=== PATIENT | male | born 1935 | race African-American/Black ===

== ENCOUNTER 2017-12-28 12:06 | Inpatient (IN) | payer MEDICARE ==
--- NOTE | 2017-12-28 17:01 | PDOC.FPRHP ---
- History of Present Illness Chief Complaint: Right knee pain History of Present Illness: Per ED doc who got report from [place] [facility], pt was taken to [facility] by his care takers because he had not gotten out of bed for the past 2-3 days due to leg pain. In the ER he was noted to have a R knee effusion which was subsequently aspirated. Due to the concern for a possible septic joint, he was transferred to this facility. Once at this facility it was noted that the patient did not have fever and his WBC count was not elevated. Concern for septic joint was low in this ER, however it was determined that the patient would likely be appropriate for rehab dt his lack of mobility. Unfortunately, there are no rehab beds available and the patient does need inpatient observation dt his baseline dementia in the setting of what is a possibly infected joint. It was also noted in the ED that the patient had a UA concerning for UTI. He was given one dose of IV Rocephin. This history was hampered by the fact that the patient has a baseline confusion. He typically does not know where he is and has very poor short term memory. ED Course: Pt was treated for UTI with 1g Rocephin IV. - Allergies/Adverse Reactions Allergies Allergy/AdvReac Type Severity Reaction Status Date / Time No Known Allergies Allergy Verified 06/06/17 23:20 - Home Medications Medication Instructions Recorded Confirmed Type Acetaminophen [Tylenol Regular 650 mg PO Q4H PRN 12/28/17 12/28/17 History Strength] Amlodipine [Norvasc] 12/28/17 History Atorvastatin Calcium [Lipitor] 12/28/17 History Comments: This med rec was done based on pharmacy records. The patient could not provide accurate records and there are no caregivers available to discuss patient - History PMHx: HTN Dementia PSHx: FHx: Social: Hx of etoh abuse Hx of tobacco use - Review of Systems ROS unobtainable: other (Pt will interact and answer questions, however is unreliable dt the patient's baseline dementia) General: denies: fever/chills, weight/appetite/sleep changes Eyes: denies: eye pain, vision changes ENT: denies: nasal congestion, rhinorrhea Respiratory: denies: cough, congestion Cardiovascular: denies: chest pain, palpitation Gastrointestinal: denies: nausea, vomiting, diarrhea Genitourinary: denies: incontinence, dysuria Skin: denies: rashes, lesions Musculoskeletal: reports: pain, tenderness, stiffness, swelling (Complains of left and right LE pain), arthritis/arthralgias Neurological: denies: numbness, syncope Psychological: denies: anxiety, depression - Vital signs BP: 122/88 HR: 92 RR: 14 Tmax: 98.6 Pox: 100% on RA Wt: 39 kg - Physical Exam Constitutional: NAD, awake, alert and oriented (Only oriented to place) HEENT: normocephalic and atraumatic, PERRLA, EOMI Neck: supple, FROM Chest: no-tender to palpation, no lesions Heart: RRR, normal S1/S2, no murmurs/rubs/gallops Lungs: CTAB, no respiratory distress, good air movement, no wheezing Abdomen: soft, non-tender, bowel sounds present -Musculoskeletal: Right knee is TTP and has obvious effusion. s/p aspiration in [place]. Will not go through ROM dt pain Right ankle TTP. Pain with ROM Neurological: no focal deficit, CN II-XII intact Skin: no rash/lesions, good turgor Heme/Lymphatic: no unusual bruising or bleeding, no purpura -Psychiatric: Pt is aware of self, but is otherwise confused. He will interact appropriately, however has poor short term memory and cannot remember any of the days events. FMR H&P: Results - Labs Lab results: Laboratory Tests 12/28/17 12/28/17 12/28/17 09:43 09:43 09:49 WBC 5.6 Hgb 15.4 MCV 95.0 H Plt Count 269 Neutrophils % (Manual) 69 Sodium 142 Potassium 4.2 Chloride 102 Carbon Dioxide 26 Anion Gap 18 BUN 17 Creatinine 1.16 Estimated GFR (MDRD) 73 Glucose 113 H Uric Acid 7.3 H Calcium 10.5 H Total Bilirubin 1.0 AST 38 H ALT 23 Alkaline Phosphatase 56 Serum Total Protein 8.1 Albumin 3.6 Globulin 4.5 H Albumin/Globulin Ratio 0.8 L Urine Color Yellow Urine Clarity Clear Urine pH 5.5 Ur Specific [place] 1.025 Urine Protein 30 H Urine Glucose (UA) Negative Urine Ketones Negative Urine Blood Moderate H Urine Nitrite Positive H Urine Bilirubin Small H Urine Urobilinogen 4.0 H Ur Leukocyte Esterase Trace H Urine RBC 0-3 Urine WBC 4-6 H Ur Squamous Epith Cells 0-3 Urine Bacteria Rare-Few - Radiology Interpretation Other Status: report reviewed by me (Xray R Leg. Degenerative chages with effusion. No fx) FMR H&P: A/P - Problem List (1) Effusion, right knee Current Visit: Yes Status: Acute Priority: High Code(s): M25.461 - EFFUSION, RIGHT KNEE (2) Dementia Current Visit: Yes Status: Acute Priority: Medium Code(s): F03.90 - UNSPECIFIED DEMENTIA WITHOUT BEHAVIORAL DISTURBANCE Qualifiers: Dementia type: unspecified type (3) Hypertension Current Visit: Yes Status: Chronic Priority: Low Code(s): I10 - ESSENTIAL (PRIMARY) HYPERTENSION Qualifiers: Hypertension type: unspecified Qualified Code(s): I10 - Essential (primary ) hypertension (4) UTI (urinary tract infection) Current Visit: Yes Status: Acute Priority: Medium - Plan Right knee effusion - septic joint vs gout vs inflammatory arthritis vs osteoarthritis - aspirate studies pending - most likely etiology is inflammatory arthritis given that the PE found tenderness in multiple joints - treat pain with toradol/tylenol - will put in rehab consult for am Dementia - work to find next of kin/POA. At this point all treatment is based on limited known history and lab values UTI - given rocephin in the ED - Cx pending - Will continue abx Hyperuricemia - Mild elevation. patient may have undiagnosed gout - Studies for stone in joint aspirate are pending - toradol for pain as above Hypercalcemia - mild elevation. patient is asymptomatic - will give gentle IVF - recheck in am HTN - Per hx. Currently controlled. DVT prophylaxis - lovenox Hx of etoh abuse - ASE protocol without meds Disposition/LOS: This appears unlikely to be septic. Will obs over night and control pain. Will likely dc when placement is ready in am FMR H&P: Upper Level - Pertinent history 82 yo male with hx of etoh abuse who presents because he had not been able to walk for 2-3 days and had large knee effusion in R knee. Per his caregiver, he formally had been able to toilet on his own. Had major lapse's in memory. he can feed himself. he was living alone until about 1 month ago. He denies a hx of gout. actually the only symptom that the patient endorses is stomach cramping. - Pertinent findings Vitals WNL Gen: NAD, awake, alert to place and person, easily conversant. but does not the know the date or time at all. Thinks current president is "eun or claudia ". HEENt: MMM Resp: CTA Abdomen: soft nontender Musk: Large R knee effusion, refuses to move R knee. moves other joints. joint is warm Neuro. moves all extremites except r knee. CN intact - Plan Date/Time: 12/28/171653 I, [Toshia Pantoja MD], have evaluated this patient and agree with findings/plan as outlined by international trade manager resident. Pertinent changes/additions are listed here. 1. R knee effusion- suspect Gout based on uric acid, but could be infectious. will treat with nsaids and watch synovial studies 2. Dementia- at baseline per next of kin in [facility]. This person let patient move in 1 month ago because he wasn't taking care of himself. Patient said call "uday sheets" 3. HTN- in hx but no elevation today. no home meds curently 4. DVT ppx- lovenox for immobility 5. chart hx of etoh abuse- ASE protocol. 6. UTI- signicant UA. rocephin given. will continue omnicef. Attending Addendum - Attending Addendum Date/Time: 12/28/172119 I personally evaluated the patient and discussed the management with Dr. Spence. I agree with and repeated the History, Examination, Assessment and Plan documented above with any addition or exceptions noted below. Pt complaints of some knee and right toe pain. Poor informant, coulter-negative on ROS unless specifically prompted. Obvious large right knee effusion on exam, ballotable, slightly TTP. Decreased A/PROM. Warm. Good distal pulses. Also has warm right first MTP, TTP with A/PROM. No allodynia. 97% PMNs. Will discuss with ortho. Add vanc, continue rocephin. BC sent. Agree with differential. CK added.
[2017-12-28] MEDS ORDERED: Ketorolac Tromethamine 30 MG/ML VIAL IVP SCH (17:45)
[2017-12-28] MEDS ORDERED: Thiamine HCl 200 MG/2 ML VIAL IM SCH (19:30)
[2017-12-28] MEDS: Sodium Chloride 0.9% 1,000 ML IV SCH (20:20)
[2017-12-28] MEDS ORDERED: cefTRIAXone\\ROCEPHIN 1 GM in Sodium Chloride 0.9% 100 ML IVPB SCH (21:15)
[2017-12-28] MEDS ORDERED: Vancomycin HCl 1.25 GM in Sodium Chloride 0.9% 250 ML 250 ML IVPB SCH (21:30)
--- NOTE | 2017-12-28 21:49 | PDOC.EVN ---
Event Note - Event Note Event Note: On review of synovial fluid aspirate, there is concern for septic arthritis. Pt to be started on IV vancomycin and rocephin. Ortho has been consulted and he is to be NPO @ midnight for possible washout in the AM. Pt seen and examined @ bedside: Rt kn swollen and ballotable with suprapetallar fluctuance. Complains of only mild pain at the moment.
[2017-12-29 05:29] LABS: #Eosinphils 0.1 thou/uL (0.0-0.7); #Lymphocytes 1.3 thou/uL (1.20-3.40); #Monocytes 0.4 thou/uL (0.11-0.59); #Neutrophils 2.5 thou/uL (1.40-6.50); %Basophils 0.8 % (0.0-1.0); %Eosinophils 2.1 % (0.0-10.0); %Lymphocytes 29.1 % (21.0-51.0); %Monocytes 9.7 % (0.0-10.0); %Neutrophils 58.4 % (42.0-75.0); Hemoglobin 12.8 g/dL (14.0-18.0); Mean Corpuscular HGB CONC 32.9 g/dL (32.0-36.0); Mean Corpuscular Hemoglobin 33.1 pg (27.0-31.0); Mean Platelet Volume 7.6 fL (7.4-10.4); Platelet Count 270 thou/uL (130-400); Red Blood Cell (RBC) Count 3.87 mill/uL (4.70-6.10); White Blood Cell (WBC) Count 4.4 thou/uL (4.8-10.8)
[2017-12-29 05:35] LABS: ALT (SGPT) 20 U/L (8-55); AST (SGOT) 29 U/L (5-34); Albumin 2.8 g/dL (3.4-4.8); Alkaline Phosphatase 45 U/L (40-150); Anion Gap 13 mmol/L (10-20); BUN (Urea Nitrogen) 20 mg/dL (8.4-25.7); Bilirubin, Total 0.6 mg/dL (0.2-1.2); CK (CPK) 25 U/L (30-200); Calc. Creatinine Clearance 57 mL/min (70-130); Calcium 9.1 mg/dL (7.8-10.44); Carbon Dioxide 24 mmol/L (23-31); Chloride 107 mmol/L (98-107); Estimated GFR-MDRD 86; Globulin 3.4 g/dL (2.4-3.5); Glucose 94 mg/dL (83-110); Potassium 3.8 mmol/L (3.5-5.1); Protein, Total 6.2 g/dL (5.8-8.1); Sodium 140 mmol/L (136-145)
[2017-12-29] MEDS: Sodium Chloride 0.9% 1,000 ML IV SCH (07:32)
--- NOTE | 2017-12-29 08:20 | CON ---
DATE OF CONSULTATION: 12/29/2017 CONSULTING PHYSICIAN: Jerod Chappell M.D. PERTINENT HISTORY: The patient arrived to the emergency department from the [facility] emergency department. History of dementia and was taken to the [facility] ER from caretakers because he had not gotten out of bed due to leg pain. Once he was in the ER, he was noted to have a right knee effusion. This was aspirated in the [facility] emergency department. He did not have an elevated white blood cell count and he did not have fever. However, due to lack of mobility and joint effusion, he was transferred to our facility. Orthopedic Service has been consulted for evaluation of possible septic right knee joint. The patient does have a strong history of dementia. At the bedside today, there are no family members present. My history is limited secondary to dementia and records are obtained from the chart primarily. The patient denies any pain today. He does not know why he is here. He states he might have fallen in the past few days, but does not remember this. He does not recollect a joint aspiration done in the ER. He states that he is hungry. Does not know if he has a history of osteoarthritis or gout. Patient was noted in the emergency department to have a UA concerning for UTI. He has been given a dose of IV Rocephin. Joint aspirate was obtained prior to this. PAST MEDICAL HISTORY: Includes hypertension and dementia. SOCIAL HISTORY: Includes a history of alcohol abuse and history of tobacco abuse. REVIEW OF SYSTEMS: Unobtainable secondary to patient's baseline dementia. PHYSICAL EXAMINATION: VITAL SIGNS: Show temperature of 97.6, pulse rate of 71, respiratory rate of 16 , and blood pressure of 122/82. GENERAL: Patient is awake and alert in bed. He is in no acute distress. MUSCULOSKELETAL: Evaluation of the right knee shows a 3+ knee effusion. The patient has full active range of motion without any difficulty. Full passive range of motion as well without any pain elicited. No erythema noted to the knee. Distal neurovascular status is intact. No significant lower extremity edema. Straight leg raise, able to hold for 10 seconds, no extensor lag. Negative logroll on the right side. No significant medial or lateral joint line pain elicited with palpation. No significant ligamentous laxity appreciated. LABORATORY DATA AND IMAGING DATA: Labs including CBC and chemistry show hemoglobin of 12.8 with hematocrit of 38.9, white blood cell count of 4.4 and platelets of 270. CRP is 30.39 with an ESR of 108. Joint aspirate culture and Gram stain is pending. Urine aspirate shows white blood cells of 32,000. 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 ASSESSMENT AND PLAN: An 82-year-old gentleman with right knee pain and effusion with history of dementia. Our service has been consulted for evaluation of possible septic knee. Suspicion for septic knee very low at this time given patient's full range of motion today at bedside without any pain elicited. He does have a joint effusion. We will follow his joint aspirate for cultures. Suspicions are high for osteoarthritis flare versus gout. We will hold his n.p.o. status until the cultures resulted showing crystals. Again , suspicion for septic joint is low at this time. We will hold n.p.o. status until synovial fluid is further resulted. CHRISTI
[2017-12-29] MEDS: Famotidine/PF 20 mg/2ml Vial SLOW IVP SCH ×2 (08:46→21:51)
[2017-12-29] MEDS: Vancomycin HCl 1.25 GM in Sodium Chloride 0.9% 250 ML 250 ML IVPB SCH ×3 (08:47→21:52)
[2017-12-29] MEDS ORDERED: Vancomycin HCl 1.25 GM in Sodium Chloride 0.9% 250 ML 250 ML IVPB SCH (09:00)
[2017-12-29] MEDS ORDERED: Cefdinir 300 MG CAP PO SCH (09:00)
[2017-12-29] MEDS: Enoxaparin Sodium 40 MG/0.4 ML SYRINGE SC SCH (10:42)
[2017-12-29] MEDS: Magnesium Oxide 400 MG TAB PO SCH (10:42)
[2017-12-29] MEDS: Multivitamin W/ Minerals 1 TAB PO SCH (10:42)
[2017-12-29] MEDS: Folic Acid 1 MG TAB PO SCH (10:42)
--- NOTE | 2017-12-29 11:31 | PDOC.FM ---
- Subjective Subjective: Pt seen at bedside in [facility] overnight. Pt notes his knee pain is improved. Pt has no family and notes he lives with friend. Pt denies CP, SOB, abd pain, NVD this AM. - Objective MAR Reviewed: Yes Vital Signs & Weight: Vital Signs (12 hours) Temp Pulse Resp BP Pulse Ox 12/29/17 11:17 97.9 F 74 12 120/82 100 Result Diagrams: 12/29/17 04:50 12/29/17 04:50 <Wilfred Millan - Last Filed: 12/29/17 11:29> - Objective Vital Signs & Weight: Vital Signs (12 hours) Temp Pulse Pulse Pulse Resp BP BP 12/29/17 12:00 97.9 F 74 12 120/82 12/29/17 11:33 84 121/77 12/29/17 11:17 97.9 F 74 12 12/29/17 11:02 73 77 120/82 BP BP Pulse Ox Pulse Ox Pulse Ox 12/29/17 12:00 12/29/17 11:33 99 12/29/17 11:17 120/82 100 12/29/17 11:02 144/91 H 100 100 I&O: 12/28/17 12/29/17 12/30/17 06:59 06:59 06:59 Intake Total 240 Balance 240 Result Diagrams: 12/29/17 04:50 12/29/17 04:50 <Palak Lazo - Last Filed: 12/29/17 17:01> Phys Exam - Physical Examination Constitutional: NAD HEENT: PERRLA Respiratory: no wheezing, no rales Cardiovascular: RRR, no significant murmur Musculoskeletal: pulses present, edema present joint effusion of R knee, no notable erythema, good ROM Neurological: moves all 4 limbs Psychiatric: normal affect Deviation from normal: A&O x2, hx dementia, answers questions appropriately but poor recall Skin: cap refill <2 seconds <Wilfred Millan - Last Filed: 12/29/17 11:29> Dx/Plan (1) Effusion, right knee Code(s): M25.461 - EFFUSION, RIGHT KNEE Status: Acute (2) Dementia Code(s): F03.90 - UNSPECIFIED DEMENTIA WITHOUT BEHAVIORAL DISTURBANCE Status: Acute QualifierTitle: Dementia type: unspecified type Dementia behavioral disturbance: without behavioral disturbance Qualified Code(s): F03.90 - Unspecified dementia without behavioral disturbance (3) UTI (urinary tract infection) Status: Acute QualifierTitle: Urinary tract infection type: site unspecified Hematuria presence: without hematuria Qualified Code(s): N39.0 - Urinary tract infection , site not specified (4) Hypertension Code(s): I10 - ESSENTIAL (PRIMARY) HYPERTENSION Status: Chronic QualifierTitle: Hypertension type: unspecified Qualified Code(s): I10 - Essential (primary) hypertension - Plan Plan: 1. Right knee effusion likely 2/2 gout flare - septic joint vs gout vs inflammatory arthritis vs osteoarthritis - appears to be gout flare with elevated uric acid in joint and serum and monourate crystals seen on aspirate - indomethacin added and will plan on addition of allopurinol after acute flare - continue abx at this time and deescalate when cultures negative - ortho consulted, recs greatly appreciated. no plans for surgical intervention at this time, pt can f/u outpatient. 2. Dementia - pt has no family and states he lives at a friend's home - case management and rehab consulted as pt will likely need placement at discharge 3. Asymptomatic Bacteruria - given rocephin in the ED - culture pending - no symptoms, fever, or leukocytosis at this time - will likely stop all abx when cultures show no growth at 24-48 hrs 4. Hyperuricemia - plan per above for suspected gout flare 5. HTN - Per hx. Currently controlled. - continue to monitor 6. Hx of etoh abuse - ASE protocol without meds Disposition: Pt stable and doing well. Ortho recs greatly appreciated - low suspicion for septic joint and no plans for surgical intervention. Appears to all be due to gouty flare. Will treat with indomethacin and stop abx when cultures negative at 24-48 hours. Case management consulted for likely placement at discharge. Continue to monitor. <Wilfred Millan - Last Filed: 12/29/17 11:29> Attending Addendum - Attending Addendum Date/Time: 12/29/17 6150 I personally evaluated the patient and discussed the management with . [] I agree with the History, Examination, Assessment and Plan documented above with any addition or exceptions noted below. R knee effusion- appears most consistent with gout at this time. Indomethacin. <Palak Lazo - Last Filed: 12/29/17 17:01>
[2017-12-29] MEDS ORDERED: CEFTRIAXONE ROCEPHIN SLOW IVP SCH (15:00)
[2017-12-29] MEDS ORDERED: cefTRIAXone\\ROCEPHIN 2 GM in Sodium Chloride 0.9% 100 ML IVPB SCH (15:00)
[2017-12-29] MEDS ORDERED: STERILE WATER SLOW IVP SCH (15:00)
[2017-12-29] MEDS ORDERED: cefTRIAXone\\ROCEPHIN 1 GM, Syringe 0.4 ML in Sterile Water 9.6 ML SLOW IVP SCH (15:00)
[2017-12-29] MEDS: Indomethacin 25 mg Capsule PO SCH ×2 (15:05→21:51)
[2017-12-29] MEDS ORDERED: Haloperidol Lactate 5 MG/ML VIAL IM SCH (22:33)
[2017-12-30] MEDS: Vancomycin HCl 1.25 GM in Sodium Chloride 0.9% 250 ML 250 ML IVPB SCH (06:31)
[2017-12-30] MEDS: Indomethacin 25 mg Capsule PO SCH ×3 (08:14→21:47)
[2017-12-30] MEDS: Magnesium Oxide 400 MG TAB PO SCH (08:14)
[2017-12-30] MEDS: Folic Acid 1 MG TAB PO SCH (08:14)
[2017-12-30] MEDS: Multivitamin W/ Minerals 1 TAB PO SCH (08:14)
[2017-12-30] MEDS: Enoxaparin Sodium 40 MG/0.4 ML SYRINGE SC SCH (08:15)
[2017-12-30] MEDS: Famotidine/PF 20 mg/2ml Vial SLOW IVP SCH ×2 (08:16→21:47)
[2017-12-30] MEDS ORDERED: Prevnar 13-Val Conj/PF 0.5 ML SYRINGE IM ONE (09:00)
--- NOTE | 2017-12-30 09:29 | PDOC.FM ---
- Subjective Subjective: Pt seen at beside in NAD. Pt was agitated overnight and required one time dose of haldol. No other acute events overnight. Pt denies any ROMO, CP, SOB, abd pain , NVD, or knee pain. Tolerating PO well. - Objective MAR Reviewed: Yes Vital Signs & Weight: Vital Signs (12 hours) Temp Pulse Resp BP BP Pulse Ox 12/30/17 08:00 116/84 12/30/17 07:56 97.4 F L 63 12 116/84 95 I&O: 12/29/17 12/30/17 12/31/17 06:59 06:59 06:59 Intake Total 960 Balance 960 Result Diagrams: 12/29/17 04:50 12/29/17 04:50 <Wilfred Millan - Last Filed: 12/30/17 09:27> - Objective Vital Signs & Weight: Vital Signs (12 hours) Temp Pulse Resp BP BP Pulse Ox 12/30/17 12:48 98.7 F 69 16 119/79 100 12/30/17 11:00 97.0 F L 76 12 118/78 98 12/30/17 08:00 97.4 F L 63 12 116/84 95 12/30/17 07:56 97.4 F L 63 12 116/84 95 I&O: 12/29/17 12/30/17 12/31/17 06:59 06:59 06:59 Intake Total 960 Balance 960 Result Diagrams: 12/29/17 04:50 12/29/17 04:50 <Palak Lazo - Last Filed: 12/30/17 14:28> Phys Exam - Physical Examination Constitutional: NAD HEENT: PERRLA Respiratory: no wheezing, no rales Cardiovascular: RRR, no significant murmur Gastrointestinal: non-tender, positive bowel sounds Musculoskeletal: pulses present, edema present joint effusion R knee improved, good ROM, no erythema/warmth Neurological: moves all 4 limbs Psychiatric: normal affect Deviation from normal: A&Ox2, intermittently answers questions correctly Skin: cap refill <2 seconds <Wilfred Millan - Last Filed: 12/30/17 09:27> Dx/Plan (1) Effusion, right knee Code(s): M25.461 - EFFUSION, RIGHT KNEE Status: Acute (2) Dementia Code(s): F03.90 - UNSPECIFIED DEMENTIA WITHOUT BEHAVIORAL DISTURBANCE Status: Acute QualifierTitle: Dementia type: unspecified type Dementia behavioral disturbance: without behavioral disturbance Qualified Code(s): F03.90 - Unspecified dementia without behavioral disturbance (3) UTI (urinary tract infection) Status: Acute QualifierTitle: Urinary tract infection type: site unspecified Hematuria presence: without hematuria Qualified Code(s): N39.0 - Urinary tract infection , site not specified (4) Hypertension Code(s): I10 - ESSENTIAL (PRIMARY) HYPERTENSION Status: Chronic QualifierTitle: Hypertension type: unspecified Qualified Code(s): I10 - Essential (primary) hypertension - Plan Plan: 1. Right knee effusion likely 2/2 gout flare - septic joint vs gout vs inflammatory arthritis vs osteoarthritis - appears to be gout flare with elevated uric acid in joint and serum and monourate crystals seen on aspirate - indomethacin added and will plan on addition of allopurinol after acute flare - cultures negative, abx discontinued - ortho consulted, recs greatly appreciated. no plans for surgical intervention at this time, pt can f/u outpatient. 2. Dementia - pt has no family and states he lives at a friend's home - case management and rehab consulted as pt will likely need placement at discharge 3. Asymptomatic Bacteruria - given rocephin in the ED - culture pending - no symptoms, fever, or leukocytosis at this time - abx stopped per above 4. Hyperuricemia - plan per above for suspected gout flare 5. HTN - Per hx. Currently controlled. - continue to monitor 6. Hx of etoh abuse - ASE protocol without meds Disposition: Pt stable and doing well. Awaiting placement. Antibiotics stopped. Continue to monitor. <Wilfred Millan - Last Filed: 12/30/17 09:27> Attending Addendum - Attending Addendum Date/Time: 12/30/17929 I personally evaluated the patient and discussed the management with Dr. Millan I agree with the History, Examination, Assessment and Plan documented above with any addition or exceptions noted below. R knee effusion- improving Gouty flare-indomethacin. Will start allopurinol once at baseline Patient has no family and will need CM assistance for placement. <Palak Lazo - Last Filed: 12/30/17 14:28>
[2017-12-30] MEDS ORDERED: Fentanyl 100 MCG/2 ML VIAL ONE (13:22)
[2017-12-30] MEDS ORDERED: Vancomycin HCl 1.25 GM in Sodium Chloride 0.9% 250 ML 250 ML IVPB SCH (18:00)
[2017-12-30] MEDS ORDERED: Haloperidol Lactate 5 MG/ML VIAL IM SCH (20:45)
[2017-12-31] MEDS: Folic Acid 1 MG TAB PO SCH (08:53)
[2017-12-31] MEDS: Enoxaparin Sodium 40 MG/0.4 ML SYRINGE SC SCH (08:53)
[2017-12-31] MEDS: Magnesium Oxide 400 MG TAB PO SCH (08:53)
[2017-12-31] MEDS: Multivitamin W/ Minerals 1 TAB PO SCH (08:53)
[2017-12-31] MEDS: Famotidine/PF 20 mg/2ml Vial SLOW IVP SCH (08:53)
[2017-12-31] MEDS: Indomethacin 25 mg Capsule PO SCH ×4 (08:54→21:46)
--- NOTE | 2017-12-31 09:02 | PDOC.FM ---
- Subjective Subjective: Pt seen at beside in NAD. Pt was agitated overnight and required one time dose of haldol. No other acute events overnight. Pt denies any ROMO, CP, SOB, abd pain , NVD, or knee pain. Tolerating PO well. - Objective MAR Reviewed: Yes Vital Signs & Weight: Vital Signs (12 hours) Temp Pulse Resp 12/31/17 07:31 97.8 F 75 16 I&O: 12/30/17 12/31/17 01/01/18 06:59 06:59 06:59 Intake Total 960 1290 Balance 960 1290 Result Diagrams: 12/29/17 04:50 12/29/17 04:50 <Wilfred Millan - Last Filed: 12/31/17 09:01> - Objective Vital Signs & Weight: Vital Signs (12 hours) Temp Pulse Resp BP Pulse Ox 12/31/17 08:00 97.4 F L 75 18 153/88 H 95 12/31/17 07:31 97.8 F 75 16 I&O: 12/30/17 12/31/17 01/01/18 06:59 06:59 06:59 Intake Total 960 1290 Balance 960 1290 Result Diagrams: 12/29/17 04:50 12/29/17 04:50 <Palak Lazo - Last Filed: 12/31/17 10:47> Phys Exam - Physical Examination Constitutional: NAD HEENT: PERRLA Respiratory: no wheezing, no rales Cardiovascular: RRR, no significant murmur Gastrointestinal: non-tender, positive bowel sounds Musculoskeletal: pulses present good ROM R knee, joint effusion improved Neurological: moves all 4 limbs Psychiatric: normal affect Deviation from normal: A&Ox2 Skin: cap refill <2 seconds <Wilfred Millan - Last Filed: 12/31/17 09:01> Dx/Plan (1) Effusion, right knee Code(s): M25.461 - EFFUSION, RIGHT KNEE Status: Acute (2) Dementia Code(s): F03.90 - UNSPECIFIED DEMENTIA WITHOUT BEHAVIORAL DISTURBANCE Status: Acute QualifierTitle: Dementia type: unspecified type Dementia behavioral disturbance: without behavioral disturbance Qualified Code(s): F03.90 - Unspecified dementia without behavioral disturbance (3) UTI (urinary tract infection) Status: Acute QualifierTitle: Urinary tract infection type: site unspecified Hematuria presence: without hematuria Qualified Code(s): N39.0 - Urinary tract infection , site not specified (4) Hypertension Code(s): I10 - ESSENTIAL (PRIMARY) HYPERTENSION Status: Chronic QualifierTitle: Hypertension type: unspecified Qualified Code(s): I10 - Essential (primary) hypertension - Plan Plan: 1. Right knee effusion likely 2/2 gout flare - septic joint vs gout vs inflammatory arthritis vs osteoarthritis - appears to be gout flare with elevated uric acid in joint and serum and monourate crystals seen on aspirate - indomethacin added and will plan on addition of allopurinol after acute flare - cultures negative, abx discontinued - ortho consulted, recs greatly appreciated. no plans for surgical intervention at this time, pt can f/u outpatient. 2. Dementia - pt has no family and states he lives at a friend's home - case management and rehab consulted as pt will likely need placement at discharge 3. Asymptomatic Bacteruria - given rocephin in the ED - culture pending - no symptoms, fever, or leukocytosis at this time - abx stopped per above 4. Hyperuricemia - plan per above for gout flare 5. HTN - Per hx. Currently controlled. - continue to monitor 6. Hx of etoh abuse - ASE protocol without meds Disposition: Pt stable and doing well. Awaiting placement. Antibiotics stopped. Continue to monitor. Pt to go to inpatient rehab if approved today or [facility] in [place] tomorrow, if bed available. <Wilfred Millan - Last Filed: 12/31/17 09:01> Attending Addendum - Attending Addendum Date/Time: 12/31/17 1000 I personally evaluated the patient and discussed the management with Dr. Millan I agree with the History, Examination, Assessment and Plan documented above with any addition or exceptions noted below. Gouty knee- improving slowly with indomethacin. Ambulation slowly improving. Deconditioning- will need rehab vs SNF Dementia-stable. <Palak Lazo - Last Filed: 12/31/17 10:47>
[2017-12-31] MEDS ORDERED: Haloperidol Lactate 5 MG/ML VIAL IM PRN (16:49)
[2017-12-31] MEDS ORDERED: Lorazepam 2 MG/ML VIAL IM PRN (17:44)
[2017-12-31 20:57] VITALS: TEMP 97.8
[2018-01-01 07:58] VITALS: BP 131/79
--- NOTE | 2018-01-01 08:13 | PDOC.FM ---
- Subjective Subjective: Pt seen at bedside in NAD. MYRNA overnight. No complaints this AM but pt eager to get discharged. - Objective MAR Reviewed: Yes Vital Signs & Weight: Vital Signs (12 hours) Temp Pulse Resp BP BP Pulse Ox 01/01/18 08:00 131/79 01/01/18 07:58 97.8 F 74 14 131/79 95 I&O: 12/31/17 01/01/18 01/02/18 06:59 06:59 06:59 Intake Total 1290 1170 Output Total 0 Balance 1290 1170 Result Diagrams: 12/29/17 04:50 12/29/17 04:50 <Wilfred Millan - Last Filed: 01/01/18 08:10> - Objective Vital Signs & Weight: Vital Signs (12 hours) Temp Pulse Resp BP BP Pulse Ox 01/01/18 08:00 131/79 01/01/18 07:58 97.8 F 74 14 131/79 95 I&O: 12/31/17 01/01/18 01/02/18 06:59 06:59 06:59 Intake Total 1290 1170 Output Total 0 Balance 1290 1170 Result Diagrams: 12/29/17 04:50 12/29/17 04:50 <Palak Lazo - Last Filed: 01/01/18 08:40> Phys Exam - Physical Examination Constitutional: NAD HEENT: PERRLA Respiratory: no wheezing Cardiovascular: RRR, no significant murmur Gastrointestinal: soft, non-tender Musculoskeletal: pulses present good ROM R knee, able to ambulate well Neurological: moves all 4 limbs Psychiatric: normal affect Deviation from normal: A&Ox2 Skin: cap refill <2 seconds <Wilfred Millan - Last Filed: 01/01/18 08:10> Dx/Plan (1) Effusion, right knee Code(s): M25.461 - EFFUSION, RIGHT KNEE Status: Acute (2) Dementia Code(s): F03.90 - UNSPECIFIED DEMENTIA WITHOUT BEHAVIORAL DISTURBANCE Status: Acute QualifierTitle: Dementia type: unspecified type Dementia behavioral disturbance: without behavioral disturbance Qualified Code(s): F03.90 - Unspecified dementia without behavioral disturbance (3) UTI (urinary tract infection) Status: Acute QualifierTitle: Urinary tract infection type: site unspecified Hematuria presence: without hematuria Qualified Code(s): N39.0 - Urinary tract infection , site not specified (4) Hypertension Code(s): I10 - ESSENTIAL (PRIMARY) HYPERTENSION Status: Chronic QualifierTitle: Hypertension type: unspecified Qualified Code(s): I10 - Essential (primary) hypertension - Plan Plan: 1. Right knee effusion likely 2/2 gout flare - septic joint vs gout vs inflammatory arthritis vs osteoarthritis - appears to be gout flare with elevated uric acid in joint and serum and monourate crystals seen on aspirate - indomethacin added and will plan on addition of allopurinol after acute flare - cultures negative, abx discontinued - ortho consulted, recs greatly appreciated. no plans for surgical intervention at this time, pt can f/u outpatient. 2. Dementia - pt has no family and states he lives at a friend's home - case management and rehab consulted as pt will likely need placement at discharge 3. Asymptomatic Bacteruria - given rocephin in the ED - culture pending - no symptoms, fever, or leukocytosis at this time - abx stopped per above 4. Hyperuricemia - plan per above for gout flare 5. HTN - Per hx. Currently controlled. - continue to monitor 6. Hx of etoh abuse - ASE protocol without meds Disposition: Pt stable and doing well. Pt approved for transfer to [facility] for SNF and continued rehab. <Wilfred Millan - Last Filed: 01/01/18 08:10> Attending Addendum - Attending Addendum Date/Time: 01/01/18 0840 I personally evaluated the patient and discussed the management with Dr. Millan I agree with the History, Examination, Assessment and Plan documented above with any addition or exceptions noted below. Stable for transfer to [facility]. <Palak Lazo - Last Filed: 01/01/18 08:40>
[2018-01-01] MEDS: Enoxaparin Sodium 40 MG/0.4 ML SYRINGE SC SCH (11:38)
[2018-01-01] MEDS: Folic Acid 1 MG TAB PO SCH (11:39)
[2018-01-01] MEDS: Multivitamin W/ Minerals 1 TAB PO SCH (11:39)
[2018-01-01] MEDS: Magnesium Oxide 400 MG TAB PO SCH (11:39)
[2018-01-01] MEDS: Indomethacin 25 mg Capsule PO SCH (11:42)
--- NOTE | 2018-01-02 01:04 | DIS-2 ---
DATE OF ADMISSION: 12/28/2017 DATE OF DISCHARGE: 01/01/2018 RESIDENT: Wilfred Millan M.D. ADMITTING ATTENDING: Dr. González Pradhan. DISCHARGE ATTENDING: Dr. Palak Lazo. CONSULTATIONS: 1. Orthopedic surgery, Dr. Jerod Chappell. 2. Physical therapy. 3. Case management. PROCEDURE: Right knee synovial fluid analysis performed at an outside facility. PRIMARY DIAGNOSES: 1. Right knee effusion secondary to acute gouty flare, resolving. 2. Asymptomatic bacteriuria. 3. Dementia. 4. History of alcohol abuse. 5. Hypertension. 6. History of prostate cancer. DISCHARGE MEDICATIONS: 1. Indomethacin 50 mg p.o. t.i.d. 2. Folate 1 mg p.o. daily. 3. Multivitamin p.o. daily. 4. Thiamine 100 mg p.o. daily. 5. Amlodipine 5 mg p.o. daily. 6. Atorvastatin 40 mg p.o. at bedtime. 7. Haloperidol 5 mg IM q.4 hours p.r.n. agitation. HISTORY OF PRESENT ILLNESS AND HOSPITAL COURSE: The patient is a very pleasant 82-year-old -Greek male who initially presented with right knee pain and was found to have a right effusion at an outside facility. The patient had a synovial fluid analysis performed, which showed monourate crystals and an elevated uric acid consistent with an acute gouty flare. There was initial concern for a septic joint and so Orthopedic Surgery was consulted; however, thought that the patient's sign and symptoms were explained by gout. The patient was therefore started on indomethacin and had antibiotics discontinued. The patient improved dramatically with good range of motion returning to the right knee with the patient ambulating with the assistance of Physical Therapy throughout the rest of his hospital stay. The patient did experience sundowning in the evening hours and required Haloperidol; however, responded well to reorientation and medication. The patient's vital signs were controlled throughout his hospital stay with the above medications. It is recommended that the patient be started on allopurinol once he is completely over this acute gouty flare in the future. The patient's hospital course was otherwise uncomplicated. DISPOSITION: Stable. DISCHARGE INSTRUCTIONS: 1. Location: [facility]. 2. Diet: Regular diet. 3. Activity: As tolerated with assistance of Physical Therapy. 4. Followup: The patient was instructed to follow up with the physician at [facility] for continued care and eventually his PCP upon discharge from SNF. Recommend starting allopurinol after complete resolution of this acute gouty flare. CHRISTI
--- NOTE | 2018-01-03 14:24 | EKG ---
Test Reason : Blood Pressure : / mmHG Vent. Rate : 090 BPM Atrial Rate : 090 BPM P-R Int : 156 ms QRS Dur : 072 ms QT Int : 356 ms P-R-T Axes : 068 -10 032 degrees QTc Int : 435 ms Normal sinus rhythm Normal ECG Confirmed by PETRONA MONTES ([id number]), digital editor MIYA BROWN ([id number]) on 01/03/2018 2:24:39 PM Referred By: Confirmed By:PETRONA MONTES
== END 2018-01-01 12:58 | DRG 554 ==
LOC: ERS 12:06 → T4-A 18:17 → OBSVTOIN 12-29 09:54 → T4-A 12-29 17:54
PROVIDERS: ADMIT Family Medicine; ATTEND Family Medicine
DX: M10.9 Gout, unspecified (principal); F03.90 Unspecified dementia, unspecified severity, without behavioral disturbance, psychotic disturbance, mood disturbance, and anxiety; E83.52 Hypercalcemia; M06.9 Rheumatoid arthritis, unspecified; N39.0 Urinary tract infection, site not specified; M25.461 Effusion, right knee; I10 Essential (primary) hypertension; F10.11 Alcohol abuse, in remission; F17.210 Nicotine dependence, cigarettes, uncomplicated; Z85.46 Personal history of malignant neoplasm of prostate; R82.71 Bacteriuria
CPT/HCPCS: 36415; 80053; 82550; 85025; 85652; 86140; 90471; 90670; 93005; 96374; A4216; G0009; G8978-GP-CK; G8979-GP-CI; G8987-GO-CK; G8988-GO-CI; J0696; J1630; J1650; J1885; J3010; J3370; J3411; J3475; J7050; S0028

== ENCOUNTER 2019-07-28 20:05 | Observation (INO) | payer MEDICARE ==
[2019-07-28 21:12] LABS: Troponin I Less than 0.010 ng/mL (< 0.028)
[2019-07-28] MEDS ORDERED: Famotidine 20 MG TAB PO PRN (21:57)
[2019-07-28] MEDS ORDERED: Acetaminophen 325 MG TAB PO PRN (21:57)
[2019-07-28] MEDS ORDERED: Ondansetron ODT 4 MG TAB PO PRN (21:57)
--- NOTE | 2019-07-28 22:08 | PDOC.FPRHP ---
- History of Present Illness Chief Complaint: chest pain History of Present Illness: Patient is an 84M that was a transfer from the [place] ED for cp r/o. Per report the patient had chest pain and dizziness that began around 2-3pm today, and has since resolved with 324mg aspirin and albuterol. The patient is a poor historian. His blood alcohol level on initial evaluation 87, and it is reported that he has a possible history of dementia. He is A&O x1. States that he does not know why he's here, how he got here, or where he is. Denies drinking alcohol today, or visiting the ED today. ED Course: 324mg asa, albuterol - Allergies/Adverse Reactions Allergies Allergy/AdvReac Type Severity Reaction Status Date / Time No Known Allergies Allergy Verified 06/06/17 23:20 - Home Medications Medication Instructions Recorded Confirmed Type Acetaminophen [Tylenol Regular 650 mg PO Q4H PRN 12/28/17 12/28/17 History Strength] Amlodipine [Norvasc] 5 mg PO DAILY #0 12/31/17 Rx Atorvastatin Calcium [Lipitor] 40 mg PO HS #0 12/31/17 Rx Folic Acid [Folvite] 1 mg PO DAILY tab 12/31/17 Rx Indomethacin [Indocin] 50 mg PO TID cap 12/31/17 Rx Magnesium Oxide 400 mg PO DAILY tab 12/31/17 Rx Multivitamin W/ Minerals 1 tab PO DAILY tab 12/31/17 Rx [Theragran M] Thiamine 100 mg PO DAILY tab 12/31/17 Rx Haloperidol Lactate [Haldol] 5 mg IM Q4H PRN vial 01/01/18 Rx - History PMHx:HTN, glaucoma PSHx: none FHx:non-contributory Social:drinks 1 pint every other day, smokes 1ppd for 20 years, no drug use - Review of Systems General: denies: fever/chills, weight/appetite/sleep changes Eyes: denies: eye pain, vision changes ENT: denies: nasal congestion, rhinorrhea Respiratory: denies: cough, congestion, shortness of breath Cardiovascular: denies: chest pain, palpitation, edema Gastrointestinal: denies: nausea, vomiting, diarrhea Genitourinary: denies: incontinence, dysuria Skin: denies: rashes, lesions Musculoskeletal: denies: pain, tenderness Neurological: denies: syncope Psychological: denies: anxiety, depression - Vital signs BP: [127/89] HR: [84] RR: [18] Tmax: [98.4] Pox: [96]% on [RA] Wt: [66.50kg] - Physical Exam Constitutional: NAD, well developed HEENT: normocephalic and atraumatic, PERRLA, EOMI, other (difficulty with visual tracking) Neck: supple, trachea midline Chest: no-tender to palpation, no lesions Heart: RRR, normal S1/S2 Lungs: CTAB, no respiratory distress Abdomen: soft, non-tender Musculoskeletal: normal structure, normal tone Neurological: no focal deficit, normal sensation Skin: no rash/lesions, no jaundice Heme/Lymphatic: no unusual bruising or bleeding, no purpura Psychiatric: other (A&Ox1, apparent intoxication and possibly underlying dementia) FMR H&P: Results - Labs Result Diagrams: 07/29/19 04:51 07/29/19 04:51 Lab results: Lipase 13 U/L (8-78) 07/28/19 20:41 - EKG Interpretation EKG: Normal sinus rhythm, left axis deviation, low voltage FMR H&P: A/P - Problem List (1) Alcohol intoxication Current Visit: Yes Status: Acute (2) DOLORES (acute kidney injury) Current Visit: Yes Status: Acute Code(s): N17.9 - ACUTE KIDNEY FAILURE, UNSPECIFIED (3) Chest pain, rule out acute myocardial infarction Current Visit: Yes Status: Acute Code(s): R07.9 - CHEST PAIN, UNSPECIFIED - Plan Patient is an 84M with reported hx per EMS of HTN and glaucoma presenting as a txr from the [place] ED for cp r/o. #chest pain r/o -patient denies chest pain at this time -received asa and albuterol in ED -trops neg x2 -EKG shows left axis deviation and low voltage, but otherwise nsr -monitor on tele overnight #Alcohol Intoxication -the patient had a measured alcohol level of 0.84 -the patient appeared intoxicated on exam, and was A&O x1 -reportedly drinks .5-1 pints alcohol every other day -ASE protocol -continue to monitor #DOLORES -creatinine 1.38, GFR 60 -baseline creatinine ~1.0, GFR 80-90 -IVF -continue to monitor #HTN, chronic -patient not hypertensive on exam, will continue to monitor #glaucoma, chronic -encourage pt to f/u with pcp DVT: lovenox Fluids: LR @ 100ml/hr Code: Full Dispo: obs for IVF for DOLORES, ASE protocol, likely d/c tmrw FMR H&P: Upper Level - Pertinent history 84 yo M here as transfer from [facility] where he originally complained of chest pain. He was given 325 mg of ASA and transferred here for further evaluation. Trop has been negative x2. At the time of this H&P patient has an elevated blood etoh and is A&O x1. He states that he does not know why he is here and denies CP, SOB, n/v, or diaphoresis. PMHx Dementia Etoh abuse Prostate Ca Surgical hx Prostatectomy Appendectomy Social Hx Hx of etoh abuse 1pt of liquor daily Denies tobacco or drugs - Pertinent findings See international manager note for full ROS, PE, vitals, and labs ROS General denies fever or chills CV Denies CP, palpitation, or peripheral edema Resp Denies of SOB or cough GI Denies n/v/d or abdominal pain denies increased frequency or dysuria PE General A&O x1, NAD HEENT NCAT, PERRLA CV RRR no murmur Resp CTA, no respiratory distress Abd non tender, no distension, normal BS Extremities no edema, equal pedal pulses Neuro No focal deficits, normal strength - Plan Date/Time: 07/28/19 0931 I, Wilfred Spence DO, have evaluated this patient and agree with findings/plan as outlined by international manager resident. Pertinent changes/additions are listed here. 1. Acute etoh intoxication -ASE protocol -Start thiamine 2. Chest pain, resolved -Denies all symptoms at this time. Trops are negative -Monitor on tele over night 3.DOLORES vs CKD -IVF and recheck BMP in am See international manager note for management of other chronic problems PPx SCD Diet Regular Code Full Addendum - Attending - Attending Attestation Date/Time: 07/29/19 3543 I personally evaluated the patient and discussed the management with Dr. Spence and Kip. I agree with the History, Examination, Assessment and Plan documented above with any addition or exceptions noted below.
[2019-07-28] MEDS ORDERED: Diazepam 5 MG TAB PO PRN (22:12)
[2019-07-28] MEDS ORDERED: Diazepam 5 MG TAB PO SCH (22:15)
[2019-07-28] MEDS ORDERED: Thiamine HCl 200 MG/2 ML VIAL IM SCH (22:15)
[2019-07-29] MEDS: Lactated Ringer's 1,000 ML IV SCH ×2 (02:02→11:25)
[2019-07-29] MEDS ORDERED: Diazepam 5 MG TAB PO PRN (04:00)
[2019-07-29 05:19] LABS: #Eosinphils 0.1 thou/uL (0.0-0.7); #Lymphocytes 2.3 thou/uL (1.20-3.40); #Monocytes 0.5 thou/uL (0.11-0.59); #Neutrophils 1.7 thou/uL (1.40-6.50); %Basophils 0.9 % (0.0-1.0); %Lymphocytes 49.7 % (21.0-51.0); %Monocytes 10.4 % (0.0-10.0); %Neutrophils 36.9 % (42.0-75.0); Mean Corpuscular HGB CONC 32.9 g/dL (32.0-36.0); Mean Corpuscular Hemoglobin 30.5 pg (27.0-31.0); Mean Corpuscular Volume 92.6 fL (78.0-98.0); Mean Platelet Volume 7.6 fL (7.4-10.4); Platelet Count 161 thou/uL (130-400); RBC Distribution Width 13.8 % (11.5-14.5); Red Blood Cell (RBC) Count 4.58 mill/uL (4.70-6.10); White Blood Cell (WBC) Count 4.7 thou/uL (4.8-10.8)
[2019-07-29 05:35] LABS: ALT (SGPT) 9 U/L (8-55); AST (SGOT) 11 U/L (5-34); Albumin 3.5 g/dL (3.4-4.8); Alkaline Phosphatase 63 U/L (40-110); Anion Gap 10 mmol/L (10-20); BUN (Urea Nitrogen) 22 mg/dL (8.4-25.7); Bilirubin, Total 0.5 mg/dL (0.2-1.2); Calc. Creatinine Clearance 0 mL/min (70-130); Calcium 8.5 mg/dL (7.8-10.44); Carbon Dioxide 28 mmol/L (23-31); Chloride 106 mmol/L (98-107); Estimated GFR-MDRD 68; Globulin 2.5 g/dL (2.4-3.5); Glucose 91 mg/dL (83-110); Potassium 4.1 mmol/L (3.5-5.1); Sodium 140 mmol/L (136-145)
--- NOTE | 2019-07-29 06:06 | PDOC.FM ---
- Subjective Subjective: Pt c/o / central chest pain with no radiation. He Denies SOB, diaphoresis, N/ V, palpitations, LE swelling. Pt had etoh level of 83 07/28. Pt is confused on where he is and how he got here. He thinks he was at home overnight. Pt c/o ROMO. - Objective MAR Reviewed: Yes Vital Signs & Weight: Vital Signs (12 hours) Temp Pulse Resp BP BP BP Pulse Ox 07/29/19 03:30 98.3 F 75 18 110/79 96 07/28/19 22:58 98.1 F 89 18 122/72 94 L 07/28/19 22:53 98.1 F 89 18 122/72 94 L 07/28/19 22:40 98.1 F 89 18 122/72 94 L Result Diagrams: 07/29/19 04:51 07/29/19 04:51 Phys Exam - Physical Examination Constitutional: NAD HEENT: PERRLA, moist MMs, sclera anicteric Neck: no nodes, no JVD, supple, full ROM Respiratory: no wheezing, no rales, no rhonchi, clear to auscultation bilateral Cardiovascular: RRR, no significant murmur, no rub Gastrointestinal: soft, non-tender, no distention, positive bowel sounds Musculoskeletal: no edema, pulses present Neurological: non-focal, normal sensation, moves all 4 limbs Strength 5/5 in all major muscle groups Deviation from normal: Oriented to person only. Skin: no rash, normal turgor, cap refill <2 seconds Dx/Plan (1) DOLORES (acute kidney injury) Code(s): N17.9 - ACUTE KIDNEY FAILURE, UNSPECIFIED Status: Resolved (2) Alcohol intoxication Status: Acute (3) Chest pain, rule out acute myocardial infarction Code(s): R07.9 - CHEST PAIN, UNSPECIFIED Status: Acute (4) Alcohol abuse Code(s): F10.10 - ALCOHOL ABUSE, UNCOMPLICATED Status: Chronic (5) Hypertension Code(s): I10 - ESSENTIAL (PRIMARY) HYPERTENSION Status: Chronic Qualifiers: Hypertension type: unspecified Qualified Code(s): I10 - Essential (primary ) hypertension (6) Tobacco abuse Code(s): Z72.0 - TOBACCO USE Status: Chronic - Plan Plan: Patient is an 84M, admitted to [facility], with reported hx per EMS of HTN and glaucoma presenting as a txr from the [place] ED for cp r/o. 1. Atypical Chest Pain, R/O Acute Coronary Syndrome -patient denies chest pain at this time -received asa and albuterol in ED -trops neg x3 -EKG shows left axis deviation and low voltage, but otherwise nsr -monitor on tele 2. Alcohol Intoxication -the patient had a measured alcohol level of 0.84 -the patient appeared intoxicated on exam, and was A&O x1 -reportedly drinks .5-1 pints alcohol every other day -ASE protocol -continue to monitor 3. DOLORES, improved -creatinine 1.38, GFR 60, Cr improved to 1.23 -baseline creatinine ~1.0, GFR 80-90 -IVF -continue to monitor 4. HTN, chronic -patient not hypertensive on exam, will continue to monitor 5. glaucoma, chronic -encourage pt to f/u with pcp, and ophthalmology DVT: lovenox Fluids: LR @ 100ml/hr Code: Full Diet: Heart Healthy Dispo: obs for IVF for DOLORES, ASE protocol Addendum - Attending - Attending Attestation Date/Time: 07/29/19 3249 I personally evaluated the patient and discussed the management with Dr. Keita. I agree with the History, Examination, Assessment and Plan documented above with any addition or exceptions noted below. Patient admitted for alcohol intoxication. His labs are in very good shape. There is no urgent reason that the patient needs to be in hospital. We will discuss with his caregiver but he is medically stable for discharge.
[2019-07-29 06:13] VITALS: BMI 22.3
[2019-07-29] MEDS ORDERED: Thiamine 100 MG TAB PO SCH (09:00)
[2019-07-29] MEDS ORDERED: Multivitamin W/ Minerals 1 TAB PO SCH (09:00)
[2019-07-29] MEDS ORDERED: Enoxaparin Sodium 40 MG/0.4 ML SYRINGE SC SCH (09:00)
[2019-07-29] MEDS ORDERED: Folic Acid 1 MG TAB PO SCH (09:00)
[2019-07-29] MEDS ORDERED: Magnesium Oxide 400 MG TAB PO SCH (09:00)
[2019-07-29 14:33] LABS: Amphetamine Not Detected (NotDetected); Barbiturates Screen Not Detected (NotDetected); Benzodiazepine Screen Detected (NotDetected); Cocaine Metabolite Screen Not Detected (NotDetected); Medtox Control Line Valid? VALID (VALID); Medtox Reader # READER 4; Methadone Not Detected (NotDetected); Methamphetamine Not Detected (NotDetected); Opiate Screen Not Detected (NotDetected); Oxycodone Screen Not Detected (NotDetected); Phencyclidine (PCP) Not Detected (NotDetected); THC/Cannabinoid Screen Not Detected (NotDetected); Tricyclic Screen Not Detected (NotDetected)
[2019-07-29 16:15] VITALS: BP 151/93; TEMP 97.7
--- NOTE | 2019-07-31 05:35 | DIS ---
DATE OF ADMISSION: 07/28/2019 DATE OF DISCHARGE: 07/29/2019 ADMITTING ATTENDING: Dr. Pradhan DISCHARGE ATTENDING: Dr. Bryant RESIDENT: Destiny Keita DO CONSULTS: Case Management. PROCEDURES: None. DIAGNOSES: 1. Atypical chest pain, rule out acute coronary syndrome. 2. Alcohol intoxication. 3. Acute kidney injury, improved. 4. Hypertension, chronic. 5. Glaucoma, chronic. DISCHARGE MEDICATIONS: 1. Tylenol 650 p.o. q.4 hours. 2. Lipitor 40 mg p.o. at bedtime. 3. Folic acid 1 mg p.o. daily. 4. Haldol 5 mg/mL vial, so 5 mg IM q.4 hours. 5. Indocin 50 mg p.o. t.i.d. 6. Magnesium oxide 400 mg p.o. daily. 7. Theragran one tab p.o. daily. 8. Thiamine 100 mg p.o. daily. HISTORY OF PRESENT ILLNESS/HOSPITAL COURSE: The patient was a transfer from [facility] on 07/28/2019, chest pain here and dizziness that had started the day prior. He was found to have blood alcohol level of 87. He was disoriented to place, time, and situation. Only oriented to person. The patient had negative troponin x3 and labs within normal limits. No changes on EKG. Urine drug screen positive for benzodiazepine. DISPOSITION: The patient was stable upon discharge back to live with his caregiver, Sravanthi. DISCHARGE INSTRUCTIONS: 1. Location: To home. 2. Diet: Regular diet. 3. Activity: As tolerated. 4. Followup: Follow up with primary care in 1 week's time. Job ID: [id number] [id number]
== END 2019-07-29 17:25 | disposition home or self-care (01) ==
LOC: ERS 20:05 → 2NO 20:56
PROVIDERS: ADMIT Emergency Medicine; ATTEND Emergency Medicine
DX: R07.89 Other chest pain (principal); I10 Essential (primary) hypertension; N17.9 Acute kidney failure, unspecified; F17.210 Nicotine dependence, cigarettes, uncomplicated; F10.129 Alcohol abuse with intoxication, unspecified; Y90.4 Blood alcohol level of 80-99 mg/100 ml; Z79.899 Other long term (current) drug therapy
CPT/HCPCS: 36415; 80053; 80306; 83690; 85025; 93005; 96361; G0378; J1650; J3475; J3490